=== PATIENT | male | born 1955 | race Caucasian/White ===

== ENCOUNTER 2020-04-03 13:44 | Inpatient (IN) | payer OTHER, SELFPAY ==
[2020-04-03] VITALS (27 sets, daily range): BP systolic 102–186; BP diastolic 66–100; PULSE 23–63; RESP 10–24; TEMP 36.3–36.6; O2SAT 95–100; BMI 35.6
--- NOTE | 2020-04-03 13:46 | NURSING ---
[id number] STROKE ALERT CALLED
--- NOTE | 2020-04-03 13:47 | EKG12_ITS ---
Test Reason : STROKE Blood Pressure : / mmHG Vent. Rate : 057 BPM Atrial Rate : 057 BPM P-R Int : 178 ms QRS Dur : 120 ms QT Int : 448 ms P-R-T Axes : 009 -23 -07 degrees QTc Int : 436 ms Sinus bradycardia Possible Left atrial enlargement RSR' or QR pattern in V1 suggests right ventricular conduction delay Left ventricular hypertrophy with QRS widening Abnormal ECG Confirmed by TIM LAURA, RAMYA ([id number]), editorial specialist SANAZ VIERA ([id number]) on 04/04/2020 1:05:26 PM Referred By: DIANNE Confirmed By:RAMYA DUMONT MD
--- NOTE | 2020-04-03 13:47 | CT_ITS ---
STUDY: CT BRAIN WITHOUT CONTRAST REASON FOR EXAM: Male, 64 years old. STROKE, SLURRED SPEECH, LT FACIAL DROOP RADIATION DOSAGE (If Supplied By Facility): CTDIvol = ( 44.99 ) mGy, DLP = ( 796.11 ) mGycm TECHNIQUE: Transaxial CT imaging of the brain was performed without administration of intravenous contrast material. Individualized dose optimization techniques were used for this CT. COMPARISON: No relevant priors. FINDINGS: Normal soft tissue structures. Normal calvarium. There is mild cerebral atrophy with widening of the extra-axial spaces and ventricular dilatation. Normal white matter tracts of the cerebral hemispheres. Small old lacunar infarcts of the basal ganglia bilaterally. Normal brainstem. Normal cerebellum. There is no intracranial hemorrhage. There are no findings of an acute ischemic infarction. Atherosclerotic calcification of the cavernous portions of the internal carotid arteries as well as the vertebral arteries. Partial opacification of the ethmoid sinuses as well as the sphenoid sinus and left maxillary sinus. The coils located in in the lower aspect of the right maxillary sinus. CT/Brain/Head without Contrast IMPRESSION: Chronic involutional changes of the brain. Sinusitis. Old lacunar infarcts in both basal ganglia. N.B. : The above information has been verbally conveyed by Lamont Cruz to Markie Ventura on 04/03/2020 14:06:56 (ET). Electronically Signed: Lamont Cruz, at 14:07 EST , Service support ,
--- NOTE | 2020-04-03 13:48 | CT_ITS ---
STUDY: CTA HEAD AND NECK WITH CONTRAST REASON FOR EXAM: Male, 64 years old. STROKE RADIATION DOSAGE (If Supplied By Facility): CTDIvol = ( 18.42 ) mGy, DLP = ( 787.35 ) mGycm TECHNIQUE: CT angiography was performed with a multi-detector CT scanner. Data acquisition was obtained from the skull base through the vertex following intravenous administration of IV 100mL Isovue-370. MIP images were reconstructed from the axial data set. Post-processing of the angiographic images was performed, with multiplanar reformation and 3D reconstruction. Individualized dose optimization techniques were used for this CT. COMPARISON: No relevant priors. FINDINGS: Normal bilateral petrous carotid arteries. Normal right cavernous carotid artery with a normal supraclinoid bifurcation. Normal left cavernous carotid artery with a normal supraclinoid bifurcation. Normal right A1 segments of the anterior cerebral artery. Normal left A1 segments of the anterior cerebral artery. Normal intact anterior communicating artery (ACOM). Normal bilateral A2 segments of the anterior cerebral arteries. Normal right M1 and M2 segments of the middle cerebral arteries, with a normal M1 bifurcation. Normal left M1 and M2 segments of the middle cerebral arteries, with a normal M1 bifurcation. Normal right posterior communicating artery (PCOM). Normal left posterior communicating artery (PCOM). Normal bilateral vertebral arteries. Normal basilar artery with a normal basilar bifurcation. The visualized bilateral superior cerebellar (SCA) arteries are normal. Normal bilateral P1, P2 and visualized P3 segments of the posterior cerebral arteries. There is no demonstrated aneurysm of the [place] of [place]. Atrophic changes. Calcified mediastinal and right hilar lymph nodes. Pansinusitis. AORTIC ARCH: Normal visualized aortic arch. Normal origins of the brachiocephalic, left common carotid, and left subclavian arteries. RIGHT CAROTID ARTERIES: Normal right common carotid artery (CCA). Normal right common carotid bulb. Normal origin of the right internal carotid (ICA) artery without a hemodynamically significant stenosis. Normal visualized cervical portion of the right internal carotid artery. Normal origin of the right external carotid artery (ECA). LEFT CAROTID ARTERIES: Normal left common carotid artery (CCA). Normal left common carotid bulb. Normal origin of the left internal carotid (ICA) artery without a hemodynamically significant stenosis. Normal visualized cervical portion of the left internal carotid artery. Normal origin of the left external carotid artery (ECA). VERTEBRAL ARTERIES: Normal bilateral vertebral arteries. CT/CTA Head AND Neck W/ Contrast IMPRESSION: Normal CTA Head and neck with contrast. Electronically Signed: Lamont Cruz, at 14:19 EST , Service support ,
--- NOTE | 2020-04-03 13:49 | ED.DCSUM_ITS ---
History of Present Illness Chief Complaint: Neuro S/Sx Informant: Patient, Significant Other Onset: Today, Hours - 15 minutes prior to presentation Context: Sudden Onset Timing: Continuous Quality and Location: Left Facial Droop, Left Arm Parasthesia, Left Leg Parasthesia, Left Arm Weakness, Left Leg Weakness, Slurred Speech, Difficulty with Ambulation Onset: 1329 Current Severity: Mild Maximum Severity: Mild Worsened by: Nothing Relieved by: Mapping Associated Symptoms: Negative for: Headache, Nausea, Vomiting, Chest Pain Narrative: Patient is a 64-year-old male who presents with strokelike symptoms. Onset 1329. His symptoms are on the left side. He is brought in by his . He has no contraindication anticoagulation therapy. He denies black or maroon stool. He denies use of anticoagulants. He has no history of dysrhythmia. Prior similar symptoms: No Recent Illness/Hospitalization: No Past Medical History - Allergies and Home Meds Allergies/Adverse Reactions: Allergies Penicillins Allergy (Verified 04/03/20 13:59) Hives Primary Care Physician: Ghulam Doty MD [Primary Care Provider] - Review of Systems General: Denies: Chills, Fever Eyes: Denies: Visual changes - bilaterally, Blurred Vision - bilaterally ENT: Denies: Bilateral ear pain, Rhinorrhea, Sore throat Cardiovascular: Denies: Chest pain, Palpitations Respiratory: Reports: Cough - states she has bronchitis. Denies: Dyspnea, Sputum Gastrointestinal: Denies: Abdominal pain, Nausea, Vomiting, Diarrhea Genitourinary: Denies: Dysuria, Hematuria, Frequency Musculoskeletal: Denies: Myalgias, Arthralgias, Neck pain, Back pain Skin: Denies: Rash, Wounds Neurological: Reports: Weakness. Denies: Headache Psych: Denies: Depression Hematologic: Denies: Easy bruising, Easy bleeding Allergy: Denies: Uticaria, Swelling of the mouth STROKE Inital Vital Signs reviewed: Yes - NIHSS Initial 1a Level of Consciousness: 0 1b LOC Questions (Score 2 if aphasic/stupor): 1 1c LOC Commands (Only score 1st attempt): 0 2 Best Gaze (If aphasic, use reflexive mvmts.): 0 3 Visual: 0 4 Facial Palsy: 1 5 Motor Arm Right (UN = amputation/fusion): 0 5 Motor Arm Left: 1 6 Motor Leg Right: 0 6 Motor Leg Left: 1 8 Sensory (Aphasia/stupor=0 or 1, coma=2): 2 9 Best Language: 0 10 Dysarthria (mute, coma=2, intubated=UN): 1 11 Extinction and Inattention (only scored if +): 1 Total Score: 8 General: Well nourished, Well developed, Obese Head: Normocephalic, Atraumatic Eyes: Perrl, EOMI. Negative for: Pale conjunctiva, Scleral icterus ENT: Moist mucous membranes, No rhinorrhea Neck: Supple, Nontender, No lymphadenopathy, No JVD Cardiovascular: Regular rate, Regular rhythm, No murmurs, Normal S1, Normal S2 Respiratory: No distress, CTA bilaterally Abdomen: Soft, Nontender, Nondistended, Normal bowel sounds, - - Positive for rectus diastases Rectal: Deferred Back: Nontender, Normal Inspection Extremities: Nontender Skin: Normal color, No rash, No Trauma. Negative for: Cyanosis, Diaphoresis, Jaundice Neurological: Negative for: Oriented x3, Cranial nerves II-XII grossly intact, Normal Strength, Normal Sensation, Normal Gait Psychological: Normal affect Diagnostic/Tx/Re-eval Impressions Brain CT 04/03/20 13:47 IMPRESSION: Chronic involutional changes of the brain. Sinusitis. Old lacunar infarcts in both basal ganglia. N.B. : The above information has been verbally conveyed by Lamont Cruz to [facility] on 04/03/2020 14:06:56 (ET). Electronically Signed: Lamont Cruz, at 14:07 EST , Service support , ADDENDUM: 04/03/20 1414 IMPRESSION: Chronic involutional changes of the brain. Sinusitis. Old lacunar infarcts in both basal ganglia. N.B. : The above information has been verbally conveyed by Lamont Cruz to [facility] on 04/03/2020 14:06:56 (ET). Electronically Signed: Lamont Cruz, at 14:07 EST , Service support , Head/Neck CTA 04/03/20 13:48 IMPRESSION: Normal CTA Head and neck with contrast. Electronically Signed: Lamont Cruz, at 14:19 EST , Service support , 04/03/20 13:47 Brain/Head without Contrast [CT] Stat Chest 1 View [RAD] Stat 04/03/20 13:48 CTA Head AND Neck W/ Contrast [CT] Stat Laboratory Results 04/03/20 04/03/20 04/03/20 13:45 13:45 13:45 WBC 6.8 RBC 5.49 Hgb 16.9 H Hct 50.8 MCV 92.5 MCH 30.8 MCHC 33.3 RDW Std Deviation 44.5 H RDW Coeff of Yash 13.2 Plt Count 200 MPV 8.6 Immature Gran % (Auto) 0.400 Neut % (Auto) 61.0 Lymph % (Auto) 26.1 [place] % (Auto) 8.9 Eos % (Auto) 3.0 Baso % (Auto) 0.6 Absolute Neuts (auto) 4.1 Absolute Lymphs (auto) 1.77 Nucleated RBC % 0 PT 13.6 INR 1.1 APTT 28.7 Sodium 141 Potassium 4.1 Chloride 107 Carbon Dioxide 29.0 Anion Gap 5 BUN 24 H Creatinine 1.23 Estim Creat Clear Calc 61.47 Est GFR (MDRD) Af Amer 76 Est GFR (MDRD) Non-Af 63 BUN/Creatinine Ratio 19.5 Glucose 130 H Calcium 8.9 Troponin I < 0.015 - Medical Decision Making Stroke Team Activated: Yes Reviewed Inclusion/Exclusion criteria: Yes IV Alteplase (t-PA) Administered: Yes No contraindications for IV Alteplase (t-PA) administration.: Yes - There are no contraindications Alteplase (t-PA) risks, benefits, alternative discussed: Yes Not given: Patient refusal: No - Patient and consented for TPA Patient presents with strokelike symptoms. Patient is a candidate for TPA. CT of the head without contrast and CTA of the head and neck was ordered. Consultation with neurologist at [facility]. CT of the head without contrast reveals no contraindication TPA no obvious stroke. There is evidence of sinusitis and involving the maxillary, ethmoid and sphenoid with air-fluid levels. Patient has allergy to penicillin. He was treated with clindamycin. tPA was ordered after explaining risk benefits of TPA with patient and . The neurologist Dr. Martinez from [facility] was made aware. Critical care time (excluding procedures): 30-74 minutes - Care time 32 minutes including history, physical, discussion with , discussion with radiologist regarding scan, neurologist at [facility], hospitalist, facilitate admission to hospital. Patient was administered TPA. ED Disposition - Plan for ED Patient: Diagnosis: Acute right arterial ischemic stroke, middle cerebral artery (MCA), Acute sphenoidal sinusitis Referrals: Ghulam Doty MD [Primary Care Provider] -
--- NOTE | 2020-04-03 13:50 | CM.ED ---
SOCIAL WORK Stroke Alert Responded to Stroke Alert. Patient out of room. Met with in room. Introduced role and reason for referral. making phone calls to family. Emotional support provided. denies any needs at this time. This worker to remain available. Jodie Scales, JAVA TECHNICAL MANAGER, COLLECTIONS ANALYST
[2020-04-03 13:56] LABS: Absolute Lymphocyte Count 1.77 X10^3/uL (0.83-4.51); Absolute Neutrophil Count 4.1 X10^3/uL (2.0-7.7); Basophil# 0.04 X10^3/uL; Basophil% 0.6 % (0-1); Hematocrit 50.8 % (40-54); Hemoglobin 16.9 g/dL (13.0-16.5); Lymphocyte # 1.77 X10^3/ul (4.0); Lymphocyte % 26.1 % (19-41); Mean Corp Hgb Conc 33.3 g/dL (32-36); Mean Corpuscular Hgb 30.8 pg (27.0-32.0); Mean Corpuscular Volume 92.5 fL (80-94); Mean Platelet Vol. 8.6 fl (6.2-12.0); Monocyte% 8.9 % (0-10); NRBC Flagged by Analyzer 0 % (0-5); Neutrophil # 4.13 X10^3/uL (2.7-7.7); Platelet Count 200 K/mm3 (150-450); RBC Distribution Width CV 13.2 % (11.6-14.6); RBC Distribution Width SD 44.5 fl (35.1-43.9); Red Blood Count 5.49 M/mm3 (4.6-6.2); White Blood Count 6.8 K/mm3 (4.4-11.0)
[2020-04-03 14:07] LABS: International Normalized Ratio 1.1; Prothrombin Time (Protime)PT. 13.6 SECONDS (11.7-14.9)
[2020-04-03 14:08] LABS: Partial Thromboplast Time 28.7 Seconds (24.1-36.2)
[2020-04-03 14:13] LABS: Anion Gap 5 (5-15); BUN 24 mg/dL (7-18); BUN/Creat Ratio 19.5 RATIO (10-20); Calcium,Total 8.9 mg/dL (8.5-10.1); Chloride 107 mmol/L (98-107); Creatinine, Serum 1.23 mg/dL (0.70-1.30); EST Glomerular Filtration Rate 63 mL/min (>60); Est Glom Filt Rate - Afr Amer 76 mL/min (>60); Estimated Creatinine Clearance 61.47 ml/min; Glucose 130 mg/dL (74-106); Potassium 4.1 mmol/L (3.5-5.1); Sodium Level 141 mmol/L (136-145)
--- NOTE | 2020-04-03 14:30 | NURSING ---
DR ISIS DEAN
--- NOTE | 2020-04-03 14:32 | CHAPLAIN ---
Type of Pastoral Visit ___ Initial Visit ___ Follow-up Visit ___ On-call Visit ___ General Patient Visit ___ Spiritual Assessment ___ Family Conference ___ Bereavement _x__ Rapid Response ___ Code Blue ___ Other (describe below) Pastoral Care Referral From ___ Patient _x__ Family ___ Nurse ___ Physician ___ Hand Zipper Trimmer ___ Paraprofessional Aide Teacher _x__ Other (describe below) Sacrament/Intervention ___ Active listening ___ Anointing ___ Worship ___ Bereavement ___ Communion ___ Monisha exploration ___ ___ Life review _x__ Prayer ___ Reconciliation ___ Sacrament of Sick _x__ Supportive presence ___ Wedding ___ Other (describe below) Pastoral Comments responded to stroke alert in ED; spouse of patient recognizes this fuller brush man and invites to support; spouse identifies as believer and desiring of spiritual care and prayer
--- NOTE | 2020-04-03 14:39 | HP.PCM_ITS ---
History of Present Illness Date of Admission: 04/03/20 Chief Complaint: left facial droop, left sided weaknes and slurred speech The patient is a 64 year old M with a past medical history as outlined. He was admitted through the ED on 04/03/2020 with a complaint of left-sided facial droop, left-sided weakness and paresthesia as well as slurred speech which started about 15 minutes prior to presentation. It was of sudden onset, about 15 minutes before admission. said she noted he was just staring, and had left sided mouth droop and the above symptoms. He has never had any symptoms like this before. Review of symptoms otherwise negative. CT of the brain done on admission showed chronic involutional changes and sinusitis with old lacunar infarcts in both basal ganglia; CTA of the head and neck with contrast was read as negative for any hemodynamically significant occlusion. Telestroke with [facility] was consulted and he was deemed as a TPA candidate. Patient was therefore given TPA and is being admitted to the ICU to be managed for CVA s/p tPA. [] Past Medical History Allergies Penicillins Allergy (Verified 04/03/20 13:59) Hives Home Medications: Ambulatory Orders Medication Instructions Recorded Amlodipine [Norvasc] 5 mg PO DAILY 04/03/20 Cholecalciferol (Vitamin D3) 1,000 unit PO DAILY 04/03/20 [Vitamin D3] Enalapril Maleate 40 mg PO DAILY 04/03/20 Levothyroxine Sodium [Synthroid] 200 mcg PO DAILY 04/03/20 Nadolol 80 mg PO DAILY 04/03/20 Surgical History: no surgical history Lives: With Family Smoking Status: Never smoker Alcohol: None Drugs: None Review of Systems Constitutional: Denies: Chills, Fever, Malaise, Weakness, Weight Change HEENT: Denies: Head Aches, Sinus Congestion, Sinus Drainage Cardiovascular: Denies: Chest Pain, Palpitations Respiratory: Denies: Cough, Shortness of Breath, Shortness of breath at rest, Shortness of breath upon exertion, Sputum production Gastrointestinal: Denies: Abdominal Pain, Nausea, Vomiting Genitourinary: Denies: Dysuria Musculoskeletal: Denies: Joint Pain, Joint Tenderness Skin: Denies: Rash, Wounds Neurological: Reports: Balance problems, Change in Speech, Slurred speech, Focal weakness, Numbness, - - left sided weakness, and left facial droop Psychiatric: Denies: Anxiety, Depression, Homicidal Ideations, Suicidal Ideations Hematologic/ Lymphatic: Denies: Easy Bruising, Easy Bleeding VTE Information - Inpt Only VTE Present on Admission: No Reason prophylaxis not ordered:: Medical Contraindication - received tPA - Physical Exam Vitals/I&O's: Vital Signs Temp Pulse Resp BP Pulse Ox 98 F 60 20 H 148/77 H 97 04/03/20 14:30 04/03/20 14:30 04/03/20 14:30 04/03/20 14:30 04/03/20 14:30 Oxygen Flow Rate (L/min) 2 Oxygen Delivery Method Room Air Weight: 241 lb 2.971 oz Body Mass Index (BMI) 35.6 Finger Stick Blood Glucose 135 General: Alert, Oriented x3, Cooperative, Lethargic HEENT: Atraumatic, PERRLA, EOMI, Normocephalic Oral: Dry Mucosa Neck: Supple, No JVD, Negative Carotid Bruits Lungs: Clear to auscultation, Normal air movement, No rhonchi, No wheeze, No rales Cardiovascular: Regular rate, Regular Rhythm, Normal S1, Normal S2, No murmurs Abdomen: Bowel Sounds Present, Soft, Non Tender Extremities: No clubbing, No cyanosis, No edema, Capillary Refill Less than 3 Seconds Skin: No rashes, No breakdown Musculoskeletal: No Tenderness to Palpation of Joints or Extremities Lymphatic: No Cervical, Supraclavicular, or Inguinal Adenopathy Neurological: Neuro grossly intact, Motor Exam 5/5 strength throughout, - - left sided lower facial nerve palsy, Power 2/5 in LUE, and 4-/5 in LLE; loss of sensation to light touch and pin prick in LUE and LLE. NIHSS at time of my review was 13 Psych/Mental Status: Flat Affect Laboratory Results 04/03/20 13:45: WBC 6.8, RBC 5.49, Hgb 16.9 H, Hct 50.8, MCV 92.5, MCH 30.8, MCHC 33.3, RDW Std Deviation 44.5 H, RDW Coeff of Yash 13.2, Plt Count 200, MPV 8.6, Immature Gran % (Auto) 0.400, Neut % (Auto) 61.0, Lymph % (Auto) 26.1, [place] % (Auto) 8.9, Eos % (Auto) 3.0, Baso % (Auto) 0.6, Absolute Neuts (auto) 4.1, Absolute Lymphs (auto) 1.77, Nucleated RBC % 0 04/03/20 13:45: PT 13.6, INR 1.1, APTT 28.7 04/03/20 13:45: Sodium 141, Potassium 4.1, Chloride 107, Carbon Dioxide 29.0, Anion Gap 5, BUN 24 H, Creatinine 1.23, Estim Creat Clear Calc 61.47, Est GFR (MDRD) Af Amer 76, Est GFR (MDRD) Non-Af 63, BUN/Creatinine Ratio 19.5, Glucose 130 H, Calcium 8.9, Troponin I < 0.015 Diagnostic Data Head/Neck CTA 04/03/20 13:48 IMPRESSION: Normal CTA Head and neck with contrast. Electronically Signed: Lamont Anthony, at 14:19 EST , Service support , Current Medications Acetaminophen (Acetaminophen 325 Mg Tablet) 650 mg PO .X1 PRN PRN Reason: Temp > 99.6 F Diphenhydramine HCl (Diphenhydramine 50 Mg/Ml Syringe) 50 mg IV .X1 PRN PRN Reason: Allergic Reaction Stop: 04/05/20 14:00 Sodium Chloride () 1,000 mls @ 100 mls/hr IV .Q10H LUISA Famotidine 20 mg/ Sodium (Chloride) 10 mls @ 300 mls/hr IV .X1 PRN PRN Reason: Allergic Reaction Stop: 04/05/20 14:00 Nicardipine/Dextrose (Cardene-Dex 20 Mg/200 Ml Soln) 20 mg in 200 mls @ 50 mls/hr IV .Q4H PRN; Protocol PRN Reason: See Instructions Clindamycin Phosphate 900 mg/ (Dextrose) 106 mls @ 150 mls/hr IV X1 ONE Stop: 04/03/20 14:42 Last Admin: 04/03/20 14:22 Dose: 150 mls/hr Documented by: Alteplase, Recombinant 81 mg/ (N/A) 81 mls @ 81 mls/hr IV X1 ONE Stop: 04/03/20 15:04 Last Admin: 04/03/20 14:10 Dose: 81 mls/hr Documented by: Labetalol HCl (Labetalol (Prefilled) 20 Mg/4 Ml) 20 mg IV X1 PRN PRN Reason: BLOOD PRESSURE Labetalol HCl (Labetalol (Prefilled) 20 Mg/4 Ml) 20 mg IV X1 PRN; Protocol PRN Reason: BLOOD PRESSURE Methylprednisolone (Methylprednisolone 125 Mg/2 Ml Vial) 125 mg IV .X1 PRN PRN Reason: Allergic Reaction Stop: 04/05/20 14:00 Assessment/Plan All Active Problems Acute right arterial ischemic stroke, middle cerebral artery (MCA) (Acute) Acute sphenoidal sinusitis (Acute) # Acute CVA * s/p tPA * NIHSS is 13 * admit to ICU * consult critical care * for MRI 24 hours after receiving tPA * neurochecks per stroke protocol * PT/OT consult * consult neurology * keep BP<185/100 * high intensity statin. Off on aspirin for now as he received TPA. * Check A1c and lipid panel. * Fall precautions. * #Hypertension: on enalpril and nadolol as well as amlodipine. Will hold these as goal BP is <180/105 after tPA # Hypothyroidism: on synthroid. DVT prophylaxis; SCDs. No anticoagulation as he received tPA Code status: full code * Patient and counseled extensively about different types of CODE STATUS including full code, DNR CCA and DNR CCA. Patient elects to be full code. * Total [id number] time 16 minutes. 18:47 At 1605, I was informed by patient's nurse by text that his NIH continued to worsen. I was informed that NIH was 9 while in the ED and had gone up to 14 of the time I was contacted. Nurse also informed me that from the report she got from the ED, after patient received TPA, patient became more confused and agitated and a repeat CT of the brain was done without contrast. This was negative for any intracranial bleed. I was not informed or aware of this repeat CT. After reviewing patient at bedside, it was noted that patient had calmed down and still had profound left-sided weakness as well as left facial droop and also profound left hemineglect. NIH stroke scale done at that time was 14. A stat teleneurology consult was placed with [facility] on account of patient's worsening condition. [facility] neurologist Dr. Femi Casanova reviewed patient and gave me a call. He stated that per his review of the CTA, patient had a proximal RCA occlusion and this qualified as a large vessel occlusion and patient would need to be transferred emergently to a tertiary center with interventional radiology or interventional neurology service. Of note, CTA which was done on admission in the ED was read as normal. I therefore emergently called [facility] telestroke ([phone]) and spoke to Dr. Yung Dubon, who was the telestroke neurologist who had seen patient when patient was in the ED. I discussed with Dr. Yung Dubon about the change in the patient's status and also informed him of the findings by Dr. Femi Casanova of a proximal RCA occlusion. Dr. Yung Dubon immediately agreed to emergent transport of patient to [facility] via air ambulance and patient is to be transported to the ED. of note, while patient was waiting for transfer to [facility], he had episodic bradycardia with heart rate going down to 25. Patient was alert and conscious throughout and was asymptomatic and heart rate per nurse, immediately bounced back up to 55. EKG done showed sinus bradycardia with heart rate of 54 which was similar to EKG done earlier. Patient had not received any rate limiting medications. He had another episode of bradycardia, with HR going down to 22; he was asymptomatic. He was given a dose of IV atropine 0.5mg x 1. Patient's Vijaya Carbone ([id number]) informed about change in patient's medical condition and the need to urgently transport him to [facility] by air ambulance. Patient left for [facility] ED via air ambulance at 19:15. Inpatient E&M: 77241 Init Hosp L3 Procedures: 11879 Advncd Care Plan 30 Min
--- NOTE | 2020-04-03 14:39 | NURSING ---
ICU [facility] RT MIDDLE CEREBRAL CVA, SPHENOID SINUSITIS
--- NOTE | 2020-04-03 14:53 | NURSING ---
ICU 5
[2020-04-03] MEDS: 0.9% Normal Saline 1,000 ML 100 ML IV ×2 (14:55→16:55)
--- NOTE | 2020-04-03 15:12 | CT_ITS ---
STUDY: CT BRAIN WITHOUT CONTRAST REASON FOR EXAM: Male, 64 years old. DETERIORATION AFTER TPA, PT HEAD IS DEVIATING TO THE RIGHT, FACIAL DROOP RADIATION DOSAGE (If Supplied By Facility): CTDIvol = ( 44.99 ) mGy, DLP = ( 829.85 ) mGycm TECHNIQUE: Transaxial CT imaging of the brain was performed without administration of intravenous contrast material. Individualized dose optimization techniques were used for this CT. COMPARISON: Comparison is made with prior study done earlier today. FINDINGS: Normal soft tissue structures. Normal calvarium. There is mild cerebral atrophy with widening of the extra-axial spaces and ventricular dilatation. Normal white matter tracts of the cerebral hemispheres. Stable old lacunar infarcts in the basal ganglia. Normal brainstem. Normal cerebellum. There is no intracranial hemorrhage. There are no findings of an acute ischemic infarction. Stable sinusitis. CT/Brain/Head without Contrast IMPRESSION: Chronic involutional changes of the brain. Electronically Signed: Lamont Cruz, at 15:34 EST , Service support ,
--- NOTE | 2020-04-03 15:16 | ED.RN ---
pt s/s getting worse since,and in room. repeat ct oredered previous nih. dr chung aware
--- NOTE | 2020-04-03 15:40 | RAD_ITS ---
STUDY: X-RAY CHEST REASON FOR EXAM: Male, 64 years old. STROKE TECHNIQUE: Frontal view of the chest COMPARISON: None. FINDINGS: Inspiratory volumes are low. There is probably calcified granulomata in the right lower lung. Otherwise lungs are clear.. There is no demonstrated pleural abnormality. Normal size heart. Normal mediastinum and naila. Normal visualized pulmonary arteries. Normal visualized aortic arch and descending thoracic aorta. Normal visualized thoracic spine. Normal visualized ribs, clavicles, and shoulders. There is no demonstrated abnormality of the visualized soft tissue structures of the upper abdomen. RAD/Chest 1 View IMPRESSION: Normal low inspiratory volume chest Electronically Signed: Saravanan Wesley, at 15:57 EST Tel , Service support ,
--- NOTE | 2020-04-03 15:48 | CM.ED ---
SOCIAL WORK Follow up with patient's in [facility]. stating frustration with not being able to be with patient in ICU. Emotional support and education provided. Jodie Scales, AREA COUNSELOR, CERTIFIED OPHTHALMIC ASSISTANT
--- NOTE | 2020-04-03 16:15 | NURSING ---
Patient arrived on unit at 1605 04/03. NIH and vitals started before transfer to ICU bed, and finished after in ICU bed, at 1610.
--- NOTE | 2020-04-03 16:48 | TELEMED_ITS ---
SOC Telemed has confirmed receipt of a request for visit. This document confirms receipt of the order initiating the consult. To find the results of the consultation, please view the patient's reports for the scanned Telemed Consult.
[2020-04-03 17:01] LABS: Bedside Glucose 101 mg/dL (70-110)
--- NOTE | 2020-04-03 17:41 | NURSING ---
Vijaya updated on patient condition and transfer need
--- NOTE | 2020-04-03 18:21 | NURSING ---
Patient started having worsening signs and symptoms at 1640: severe slurred speech, unable to move left arm or left leg. Unaware of left side and patient started to become more confused. NIH went from [address] Cooper notified at 1645 and neuro SOC consulted. Blood sugar 101. Dr. Cooper at bedside at 1700 Neuro SOC robot brought into patient room at bedside, neurologist assessed patient at 1720. Neurologist told this RN that he will be calling Dr. Cooper with his recommendations. Dr. Cooper called into unit at and ordered patient to be transferred out to [facility]. Transfer preparations began immediately.
--- NOTE | 2020-04-03 18:31 | NURSING ---
Patient went sinus bradycardic, HR dropped to 23 with a 5.2 second pause. Patient did not lose consciousness. Help called for additional RNs to come to bedside, Crash cart brought to bedside. Patient HR went back up to the 50s after the pause. Dr. Cooper notified and EKG ordered
--- NOTE | 2020-04-03 18:37 | EKG12_ITS ---
Test Reason : ASHOK Blood Pressure : / mmHG Vent. Rate : 054 BPM Atrial Rate : 054 BPM P-R Int : 182 ms QRS Dur : 116 ms QT Int : 442 ms P-R-T Axes : 016 -10 011 degrees QTc Int : 419 ms Sinus bradycardia Left ventricular hypertrophy with QRS widening Abnormal ECG When compared with ECG of 03-APR-2020 14:21, No significant change was found Confirmed by CHARLENE LAURA, WILMER ([id number]), news copy editor SANAZ VIERA ([id number]) on 04/11/2020 9:40:24 AM Referred By: [facility] Confirmed By:WILMER CHANG MD
--- NOTE | 2020-04-03 18:37 | NURSING ---
Maricruz zuleta updated on ETA to [facility] and Rubi ETA
--- NOTE | 2020-04-03 19:00 | NURSING ---
Patient went bradycardic again, HR 20s. BP 166/92. Patient did not lose consciousness. HR went up into the 45-55. Dr. Cooper notified and atropine 0.5mg ordered
[2020-04-03] MEDS: Atropine Sulfate 1 MG/10 ML Syringe 0.5 MG IV (19:05)
--- NOTE | 2020-04-03 19:05 | NURSING ---
[facility] at bedside
--- NOTE | 2020-04-03 19:23 | NURSING ---
called Vijaya and notified that patient is living via [facility]
--- NOTE | 2020-04-03 20:40 | ED.RN ---
information looked up for Doctor at [facility]. Medicine information relayed for patient care
--- NOTE | 2020-04-03 21:09 | DS.PCM_ITS ---
Discharge Date and Diagnosis Date of Admission: 04/03/20 Date of Discharge: 04/03/20 - Primary Discharge Diagnosis Acute Problems: acute stroke bradycardia Hospital Course and Treatment Imaging Results: 04/03/20 13:47 Brain/Head without Contrast [CT] Stat 04/03/20 13:48 CTA Head AND Neck W/ Contrast [CT] Stat 04/03/20 15:12 Brain/Head without Contrast [CT] Stat 04/03/20 15:40 Chest 1 View [RAD] Stat 04/03/20 16:56 Echo Complete [ECHO] Routine neurology Operations: None Procedures: None Summary of Care Provided: The patient is a 64 year old M with a past medical history as outlined. He was admitted through the ED on 04/03/2020 with a complaint of left-sided facial droop, left-sided weakness and paresthesia as well as slurred speech which started about 15 minutes prior to presentation. It was of sudden onset, about 15 minutes before admission. said she noted he was just staring, and had left sided mouth droop and the above symptoms. He has never had any symptoms like this before. Review of symptoms otherwise negative. CT of the brain done on admission showed chronic involutional changes and sinusitis with old lacunar infarcts in both basal ganglia; CTA of the head and neck with contrast was read as negative for any hemodynamically significant occlusion. Telestroke with [facility] was consulted and he was deemed as a TPA candidate. Patient was therefore given TPA and admitted to the ICU to be managed for CVA s/p tPA. After receiving tPA, patient had a repeat CT of the brain o/a of concerns about aptient being more confused and agitated. Repeat CT of the brain showed no evidence of intracranial bleed or infarct. On admission to the ICU, patient further deteriorated, becoming more confused, agitated and with increasing NIHSS to 14, from 9 on admission to ICU. Stat consult was placed with SOC teleneurology. SOC teleneurologist reviewed patient's imaging studies, and determined that patient had a proximal RCA occlusion, and needed emergent interventional radiology or neurology review. Dr Dubon, the [facility] telestroke neurologist who saw patient when patient was in the ED was emergently contacted, and he immediately agreed to transfer of patient to [facility] by air ambulance. Patient;s stay was further complicated by asymptomatic bradycardia, with HR going down to 25, then 22. Patient was alert during these episodes and BP was WNL. he was given a dose of IV atropine 0.5mg x 1 before emergent transfer to [facility] ED for interventional neurology review. Patient seen and examined prior to discharge. Physical examination findings as per history and physical examination. O/E: Vital Signs Temp Pulse Resp BP Pulse Ox 98 F 60 20 H 148/77 H 97 04/03/20 14:30 04/03/20 14:30 04/03/20 14:30 04/03/20 14:30 04/03/20 14:30 General: Alert, Oriented x3, Cooperative, Lethargic HEENT: Atraumatic, PERRLA, EOMI, Normocephalic Oral: Dry Mucosa Neck: Supple, No JVD, Negative Carotid Bruits Lungs: Clear to auscultation, Normal air movement, No rhonchi, No wheeze, No rales Cardiovascular: Regular rate, Regular Rhythm, Normal S1, Normal S2, No murmurs Abdomen: Bowel Sounds Present, Soft, Non Tender Extremities: No clubbing, No cyanosis, No edema, Capillary Refill Less than 3 Seconds Skin: No rashes, No breakdown Musculoskeletal: No Tenderness to Palpation of Joints or Extremities Lymphatic: No Cervical, Supraclavicular, or Inguinal Adenopathy Neurological: Neuro grossly intact, Motor Exam 5/5 strength throughout, - - left sided lower facial nerve palsy, Power 2/5 in LUE, and 4-/5 in LLE; loss of sensation to light touch and pin prick in LUE and LLE. NIHSS at time of my review was 13 Psych/Mental Status: Flat Affect Plan is for emergent transfer by life flight to [facility] ED for interventional neuroradiology evaluation. - Physical Exam Vitals/I&O's: Vital Signs Temp Pulse Resp BP Pulse Ox 97.8 F 29 L 10 L 166/92 H 100 04/03/20 18:15 04/03/20 19:00 04/03/20 19:00 04/03/20 19:00 04/03/20 19:00 Oxygen Flow Rate (L/min) 2 Oxygen Delivery Method Nasal Cannula Weight: 240 lb 8.389 oz Body Mass Index (BMI) 35.6 Finger Stick Blood Glucose 130 Intake and Output for Last 24 Hours 04/01/20 04/02/20 04/03/20 23:59 23:59 23:59 Intake Total 1257.00 / 1257.00 Balance 1257.00 / 1257.00 Laboratory Results 04/03/20 13:45: WBC 6.8, RBC 5.49, Hgb 16.9 H, Hct 50.8, MCV 92.5, MCH 30.8, MCHC 33.3, RDW Std Deviation 44.5 H, RDW Coeff of Yash 13.2, Plt Count 200, MPV 8.6, Immature Gran % (Auto) 0.400, Neut % (Auto) 61.0, Lymph % (Auto) 26.1, [place] % (Auto) 8.9, Eos % (Auto) 3.0, Baso % (Auto) 0.6, Absolute Neuts (auto) 4.1, Absolute Lymphs (auto) 1.77, Nucleated RBC % 0 04/03/20 13:45: PT 13.6, INR 1.1, APTT 28.7 04/03/20 13:45: Sodium 141, Potassium 4.1, Chloride 107, Carbon Dioxide 29.0, Anion Gap 5, BUN 24 H, Creatinine 1.23, Estim Creat Clear Calc 61.47, Est GFR (MDRD) Af Amer 76, Est GFR (MDRD) Non-Af 63, BUN/Creatinine Ratio 19.5, Glucose 130 H, Calcium 8.9, Troponin I < 0.015 04/03/20 16:56: POC Glucose 101 Home Medications: Medications to take at Discharge Amlodipine [Norvasc] 5 mg PO DAILY 04/03/20 Cholecalciferol (Vitamin D3) [Vitamin D3] 1,000 unit PO DAILY 04/03/20 Enalapril Maleate 40 mg PO DAILY 04/03/20 Levothyroxine Sodium [Synthroid] 200 mcg PO DAILY 04/03/20 Nadolol 80 mg PO DAILY 04/03/20 Primary Care Physician: Ghulam Doty MD [Primary Care Provider] - Disposition: Acute care Hospital Minutes spent on discharge:: 60 Patient Condition:: Critical Medical Necessity - Tobacco Use Smoking Status: Never smoker Tobacco Use: Non-smoker Meaningful Use Info Meaningful Use Diagnoses (Choose all that apply): Ischemic CVA - CVA Therapy Assessed for PT,OT and/or ST?: Yes - Ischemic Stroke Antithrombotic order at d/c?: Yes Dx of Atrial fib/flutter?: No Anticoagulant at discharge?: Yes Statins at discharge?: Yes Primary Dx Acute Ischemic CVA?: Yes IV tPA ordered during stay?: Yes Inpatient E&M: 56506 Disch Hosp
[2020-04-05 15:55] LABS: Bedside Glucose 135 mg/dL (70-110)
== END 2020-04-03 19:25 | disposition short-term general hospital (02) | DRG 62 ==
LOC: ED 14:02 → ICU 14:43
PROVIDERS: Admitting Provider Student in an Organized Health Care Education/Training Program; Emergency Provider Emergency Medicine; PCP Family Medicine; Visit Provider Student in an Organized Health Care Education/Training Program
DX: I63.231 Cerebral infarction due to unspecified occlusion or stenosis of right carotid arteries (principal); G81.94 Hemiplegia, unspecified affecting left nondominant side; R41.4 Neurologic neglect syndrome; R47.81 Slurred speech; R29.713 NIHSS score 13; J01.30 Acute sphenoidal sinusitis, unspecified; I10 Essential (primary) hypertension; R00.1 Bradycardia, unspecified; E03.9 Hypothyroidism, unspecified; Z79.890 Hormone replacement therapy; Z79.899 Other long term (current) drug therapy
CPT/HCPCS: 70450; 70496; 70498; 71045; 80048; 82962; 84484; 85025; 85610; 85730; 93005; 99285; J2997; J7030; J7040; Q9967; A4216